=== PATIENT | female | born 1935 | race Caucasian/White ===

== ENCOUNTER 2022-10-29 15:10 | Inpatient (IN) | payer OTHER, MEDICARE ==
[~2022-10-29 15:10] MED LIST: Iopamidol 370 76% 100 ML VIAL ONE
[2022-10-29] MEDS ORDERED: Ipratropium/Albuterol 3 ML NEB ONE (16:12)
[2022-10-29 16:36] LABS: ALT (SGPT) 22 U/L (8-55); AST (SGOT) 31 U/L (5-34); Alkaline Phosphatase 89 U/L (40-110); Anion Gap 16 mmol/L (10-20); BUN (Urea Nitrogen) 14 mg/dL (9.8-20.1); Bilirubin, Total 1.3 mg/dL (0.2-1.2); Calc. Creatinine Clearance 0 mL/min (70-130); Calcium 8.1 mg/dL (7.8-10.44); Carbon Dioxide 24 mmol/L (23-31); Chloride 99 mmol/L (98-107); Estimated GFR 61; Globulin 3.6 g/dL (2.4-3.5); Glucose 133 mg/dL (83-110); Potassium 3.1 mmol/L (3.5-5.1); Protein, Total 7.6 g/dL (5.8-8.1); Sodium 136 mmol/L (136-145)
[2022-10-29 16:38] LABS: Hematocrit 37.6 % (34.9-44.5); Hemoglobin 12.1 g/dL (12.0-15.5); Mean Corpuscular HGB CONC 32.2 g/dL (32.0-36.0); Mean Corpuscular Hemoglobin 29.5 pg (27.0-33.0); Mean Corpuscular Volume 91.7 fl (81.6-98.3); Mean Platelet Volume 9.8 fl (7.4-10.4); Platelet Count 162 10x3/uL (150-450); RBC Distribution Width 13.5 % (11.5-14.5); White Blood Cell (WBC) Count 15.9 10x3/uL (3.5-10.5)
[2022-10-29 16:41] LABS: MDiff Complete? YES
[2022-10-29 16:42] LABS: Troponin I 0.027 ng/mL (< 0.028)
[2022-10-29 16:52] LABS: SARS-CoV-2 NAA Rapid Test Not Detected (NotDetected)
[2022-10-29] MEDS ORDERED: Morphine 2 MG/ML VIAL ONE (17:47)
[2022-10-29] MEDS ORDERED: Calcium Carbonate 500 MG ChewTAB PO PRN (19:31)
[2022-10-29] MEDS ORDERED: Ondansetron PF 4 MG/2 ML Vial IVP PRN (19:31)
[2022-10-29] MEDS ORDERED: Acetaminophen 325 MG TAB PO PRN (19:31)
[2022-10-29] MEDS ORDERED: Guaifenesin DM 100-10/5 ML UDCUP PO PRN (19:31)
[2022-10-29] MEDS ORDERED: Senokot S 8.6-50 MG TAB PO PRN (19:31)
[2022-10-29 20:21] LABS: Band 3 % (5-11); Lymphocytes 1 % (21-51); Monocytes 4 % (0-10); Neutrophil 92 % (42-75)
[2022-10-29 20:22] LABS: Platelet Adequacy Comment Appears Adequate
[2022-10-29 20:25] LABS: RBC Morph Comment Within Normal Limits
[2022-10-29 20:27] LABS: Nucleated RBC (Manual Ct) 0 % (0)
[2022-10-29 22:06] LABS: ALV-art Gradient 143.855 mmHg (0-20); Base Excess (BEa) 0.3 mEq/L (-2.0 to +3.0); CO2 Tension 35.7 mmHg (35.0-45.0); Calcium, Ionized (arterial) 1.01 mmol/L (1.12-1.30); Carboxyhemoglobin (COHb) 0.5 gm% (0.0-3.0); Critical Notified By: CP.PH; Hematocrit-ABG 35 % (36.0-47.0); Hemoglobin (Hb) 11.9 g/dL (12.0-16.0); O2 Tension (PaO2), arterial 68.2 mmHg (> 60.0); Potassium - ABG Lab 3.13 mmol/L (3.70-5.30); Puncture Site LBA; RapidComm Collect By CP.JR1; pH, Arterial 7.446 (7.35-7.45)
[2022-10-29] MEDS ORDERED: Morphine 2 MG/ML VIAL SLOW IVP PRN (22:15)
[2022-10-29] MEDS ORDERED: Famotidine 20 MG TAB PO SCH (22:30)
[2022-10-29] MEDS ORDERED: Potassium Chloride 20 MEQ TAB PO SCH (22:30)
[2022-10-29] MEDS ORDERED: Furosemide 20 MG/2 ML VIAL SLOW IVP SCH (22:30)
[2022-10-29] MEDS ORDERED: Metoprolol Tartrate 25 MG TAB PO SCH (22:30)
[2022-10-29] MEDS: HYDROcodone/Acetaminophen 5/325 mg Tablet PO PRN (23:41)
[2022-10-30] MEDS ORDERED: Potassium Chloride 20 MEQ TAB PO SCH ×2 (02:00→08:00)
[2022-10-30 02:09] VITALS: BMI 23.1
[2022-10-30 04:17] LABS: #Monocytes 0.6 10x3/uL (0.0-1.1); %Basophils 0.2 % (0.0-2.0); %Eosinophils 0.1 % (0.0-6.0); %Lymphocytes 4.8 % (18.0-47.0); %Monocytes 4.8 % (0.0-10.0); %Neutrophils 89.4 % (40.0-75.0); Hematocrit 33.9 % (34.9-44.5); Mean Corpuscular HGB CONC 32.4 g/dL (32.0-36.0); Mean Corpuscular Hemoglobin 29.3 pg (27.0-33.0); Mean Corpuscular Volume 90.2 fl (81.6-98.3); Mean Platelet Volume 10.1 fl (7.4-10.4); Platelet Count 148 10x3/uL (150-450); RBC Distribution Width 13.8 % (11.5-14.5); Red Blood Cell (RBC) Count 3.76 10x6/uL (3.90-5.03); White Blood Cell (WBC) Count 12.3 10x3/uL (3.5-10.5)
[2022-10-30] MEDS: HYDROcodone/Acetaminophen 5/325 mg Tablet PO PRN (04:25)
[2022-10-30 04:31] LABS: Phosphorus 3.3 mg/dL (2.3-4.7)
[2022-10-30 04:35] LABS: ALT (SGPT) 20 U/L (8-55); AST (SGOT) 31 U/L (5-34); Albumin 3.6 g/dL (3.4-4.8); Alkaline Phosphatase 75 U/L (40-110); Anion Gap 11 mmol/L (10-20); BUN (Urea Nitrogen) 14 mg/dL (9.8-20.1); Bilirubin, Total 0.9 mg/dL (0.2-1.2); Calc. Creatinine Clearance 41 mL/min (70-130); Calcium 7.8 mg/dL (7.8-10.44); Carbon Dioxide 26 mmol/L (23-31); Chloride 99 mmol/L (98-107); Estimated GFR 62; Globulin 3.2 g/dL (2.4-3.5); Glucose 122 mg/dL (83-110); Potassium 3.2 mmol/L (3.5-5.1); Protein, Total 6.8 g/dL (5.8-8.1); Sodium 133 mmol/L (136-145)
[2022-10-30 05:09] LABS: Thyroid Stimulating Hormone 1.6501 uIU/mL (0.35-4.94)
[2022-10-30] MEDS ORDERED: Furosemide 40 MG TAB PO SCH (07:30)
[2022-10-30] MEDS: Ipratropium/Albuterol 3 ML NEB NEB PRN (07:35)
[2022-10-30] MEDS ORDERED: Cinacalcet HCl 30 MG TAB PO SCH ×2 (08:00→08:45)
[2022-10-30] MEDS ORDERED: Sertraline 25 MG TAB PO SCH (09:00)
[2022-10-30] MEDS ORDERED: Famotidine 20 MG TAB PO SCH (09:00)
[2022-10-30] MEDS ORDERED: Losartan 25 MG TAB PO SCH (09:00)
[2022-10-30] MEDS ORDERED: Metoprolol Tartrate 25 MG TAB PO SCH (09:00)
[2022-10-30] MEDS ORDERED: Gabapentin 100 MG CAP PO SCH (09:00)
[2022-10-30] MEDS: Sertraline 100 MG TAB PO SCH (09:46)
[2022-10-30] MEDS: Ezetimibe 10 MG TAB PO SCH (09:46)
[2022-10-30] MEDS: Trospium 20 MG TAB PO SCH ×2 (09:46→21:50)
[2022-10-30] MEDS: Losartan 25 MG TAB PO SCH (09:46)
[2022-10-30] MEDS: traMADol HCl 50 MG TAB PO SCH ×2 (09:47→21:49)
[2022-10-30] MEDS: Amlodipine 5 MG TAB PO SCH (09:47)
[2022-10-30] MEDS: Multivitamin W/ Minerals 1 TAB PO SCH (09:49)
[2022-10-30] MEDS: Furosemide 40 MG TAB PO SCH (09:49)
[2022-10-30] MEDS: Gabapentin 300 MG CAP PO SCH (09:49)
[2022-10-30] MEDS: Metoprolol Tartrate 25 MG TAB PO SCH ×2 (09:50→21:49)
[2022-10-30] MEDS ORDERED: HYDROcodone/Acetaminophen 10/325 mg Tablet PO PRN (13:30)
[2022-10-30] MEDS ORDERED: Morphine 4 MG/ML VIAL SLOW IVP PRN (13:30)
[2022-10-30 13:51] LABS: Vitamin D, 25 Hydroxy 27.9 ng/ml (> 30.0)
[2022-10-30] MEDS: Cinacalcet HCl 30 MG TAB PO SCH (17:18)
[2022-10-31 02:29] LABS: Bilirubin Neg (Negative); Blood, Urine 10 (Negative); Clarity Clear (Clear); Glucose, Urine (Dipstick) Normal (Negative); Ketone, Urine Negative (Negative); Leukocyte Negative (Negative); Nitrite Negative (Negative); Protein, Urine (Dipstick) 30 mg/dl (Neg-Trace); Urobilinogen Normal mg/dL (Less than 2); pH, Urine 6.5 (5.0-9.0)
[2022-10-31 02:35] LABS: CAUTI Indications for Culture Fever or rigors; RBC/HPF 0-3 HPF (0-3); Squamous Epithelial 0-3 HPF (0-3); WBC/HPF 0-3 HPF (0-3)
[2022-10-31 02:36] LABS: Bacteria/HPF None Seen HPF (None Seen); Urine Culture Reflex No No
[2022-10-31 03:51] LABS: Troponin I 0.158 ng/mL (< 0.028)
[2022-10-31] MEDS: HYDROcodone/Acetaminophen 5/325 mg Tablet PO PRN (04:32)
[2022-10-31] MEDS: Gabapentin 300 MG CAP PO SCH (08:39)
[2022-10-31] MEDS: Sertraline 100 MG TAB PO SCH (08:39)
[2022-10-31] MEDS: Multivitamin W/ Minerals 1 TAB PO SCH (08:39)
[2022-10-31] MEDS: Amlodipine 5 MG TAB PO SCH (08:39)
[2022-10-31] MEDS: traMADol HCl 50 MG TAB PO SCH ×2 (08:40→21:17)
[2022-10-31] MEDS: Cinacalcet HCl 30 MG TAB PO SCH ×2 (08:40→17:35)
[2022-10-31] MEDS: Ezetimibe 10 MG TAB PO SCH (08:40)
[2022-10-31] MEDS: Losartan 25 MG TAB PO SCH (08:40)
[2022-10-31] MEDS: Metoprolol Tartrate 25 MG TAB PO SCH ×2 (08:40→21:17)
[2022-10-31] MEDS: Famotidine 20 MG TAB PO SCH (08:40)
[2022-10-31] MEDS: Trospium 20 MG TAB PO SCH ×2 (08:41→21:17)
[2022-10-31] MEDS: Furosemide 40 MG TAB PO SCH (08:41)
[2022-11-01] MEDS: HYDROcodone/Acetaminophen 5/325 mg Tablet PO PRN (00:28)
[2022-11-01 07:59] LABS: #Eosinphils 0.3 10x3/uL (0.0-0.5); #Monocytes 0.8 10x3/uL (0.0-1.1); #Neutrophils 8.2 10x3/uL (1.5-8.4); %Basophils 0.4 % (0.0-2.0); %Lymphocytes 7.6 % (18.0-47.0); %Monocytes 7.6 % (0.0-10.0); %Neutrophils 80.8 % (40.0-75.0); Hemoglobin 11.7 g/dL (12.0-15.5); Mean Corpuscular HGB CONC 31.6 g/dL (32.0-36.0); Mean Corpuscular Hemoglobin 29.3 pg (27.0-33.0); Mean Corpuscular Volume 92.5 fl (81.6-98.3); Mean Platelet Volume 9.9 fl (7.4-10.4); Platelet Count 164 10x3/uL (150-450); RBC Distribution Width 14.2 % (11.5-14.5); White Blood Cell (WBC) Count 10.1 10x3/uL (3.5-10.5)
[2022-11-01 08:25] LABS: Anion Gap 16 mmol/L (10-20); BUN (Urea Nitrogen) 21 mg/dL (9.8-20.1); Calc. Creatinine Clearance 42 mL/min (70-130); Calcium 8.5 mg/dL (7.8-10.44); Carbon Dioxide 23 mmol/L (23-31); Chloride 100 mmol/L (98-107); Estimated GFR 64; Glucose 103 mg/dL (83-110); Potassium 4.2 mmol/L (3.5-5.1); Sodium 135 mmol/L (136-145)
[2022-11-01] MEDS ORDERED: Losartan 25 MG TAB PO SCH (09:00)
[2022-11-01] MEDS: Ezetimibe 10 MG TAB PO SCH (09:28)
[2022-11-01] MEDS: Famotidine 20 MG TAB PO SCH (09:28)
[2022-11-01] MEDS: traMADol HCl 50 MG TAB PO SCH ×2 (09:28→20:34)
[2022-11-01] MEDS: Multivitamin W/ Minerals 1 TAB PO SCH (09:28)
[2022-11-01] MEDS: Sertraline 100 MG TAB PO SCH (09:28)
[2022-11-01] MEDS: Metoprolol Tartrate 25 MG TAB PO SCH ×2 (09:29→20:34)
[2022-11-01] MEDS: Gabapentin 300 MG CAP PO SCH (09:29)
[2022-11-01] MEDS: Trospium 20 MG TAB PO SCH ×2 (09:29→20:34)
[2022-11-01] MEDS: Cinacalcet HCl 30 MG TAB PO SCH ×2 (09:29→17:22)
[2022-11-01] MEDS: Furosemide 40 MG TAB PO SCH (09:29)
[2022-11-02] MEDS ORDERED: dilTIAZem 25 MG/5 ML VIAL SLOW IVP SCH (03:45)
[2022-11-02] MEDS ORDERED: Metoprolol Tartrate 5 MG/5 ML VIAL IVP SCH (04:30)
[2022-11-02 05:59] LABS: #Eosinphils 0.2 10x3/uL (0.0-0.5); #Monocytes 0.9 10x3/uL (0.0-1.1); #Neutrophils 6.9 10x3/uL (1.5-8.4); %Basophils 0.5 % (0.0-2.0); %Eosinophils 2.4 % (0.0-6.0); %Lymphocytes 8.9 % (18.0-47.0); %Monocytes 10.3 % (0.0-10.0); %Neutrophils 77.3 % (40.0-75.0); Hematocrit 35.7 % (34.9-44.5); Hemoglobin 11.4 g/dL (12.0-15.5); Mean Corpuscular HGB CONC 31.9 g/dL (32.0-36.0); Mean Corpuscular Hemoglobin 29.4 pg (27.0-33.0); Mean Platelet Volume 10.6 fl (7.4-10.4); Platelet Count 193 10x3/uL (150-450); Red Blood Cell (RBC) Count 3.88 10x6/uL (3.90-5.03); White Blood Cell (WBC) Count 8.9 10x3/uL (3.5-10.5)
[2022-11-02 06:09] LABS: Anion Gap 17 mmol/L (10-20); BUN (Urea Nitrogen) 22 mg/dL (9.8-20.1); Calc. Creatinine Clearance 45 mL/min (70-130); Calcium 8.7 mg/dL (7.8-10.44); Carbon Dioxide 22 mmol/L (23-31); Chloride 99 mmol/L (98-107); Estimated GFR 68; Glucose 110 mg/dL (83-110); Magnesium 1.9 mg/dL (1.6-2.6); Sodium 134 mmol/L (136-145)
[2022-11-02] MEDS ORDERED: dilTIAZem 125 MG in Sodium Chloride 0.9% 100 ML IVPB SCH (06:15)
[2022-11-02] MEDS ORDERED: Digoxin 0.5 MG/2 ML AMP SLOW IVP SCH (06:15)
[2022-11-02] MEDS: Gabapentin 300 MG CAP PO SCH (08:18)
[2022-11-02] MEDS: Magnesium Oxide 400 MG TAB PO SCH ×2 (08:18→21:51)
[2022-11-02] MEDS: Metoprolol Tartrate 25 MG TAB PO SCH ×2 (08:18→21:50)
[2022-11-02] MEDS: Cinacalcet HCl 30 MG TAB PO SCH ×2 (08:18→17:10)
[2022-11-02] MEDS: Multivitamin W/ Minerals 1 TAB PO SCH (08:18)
[2022-11-02] MEDS: Trospium 20 MG TAB PO SCH ×2 (08:18→21:50)
[2022-11-02] MEDS: Sertraline 100 MG TAB PO SCH (08:18)
[2022-11-02] MEDS: Famotidine 20 MG TAB PO SCH (08:18)
[2022-11-02] MEDS: traMADol HCl 50 MG TAB PO SCH ×2 (08:19→21:51)
[2022-11-02] MEDS: Furosemide 40 MG TAB PO SCH (08:19)
[2022-11-02] MEDS: Ezetimibe 10 MG TAB PO SCH (08:19)
[2022-11-02] MEDS ORDERED: Amiodarone 150 MG, Admixture Fee 1 EACH in Dextrose 5% in Water 100 ML IVPB SCH (10:00)
[2022-11-02] MEDS ORDERED: Amiodarone 450 MG in Dextrose 5% in Water 250 ML IVPB SCH (10:00)
[2022-11-02] MEDS: HYDROcodone/Acetaminophen 10/325 mg Tablet PO PRN (17:09)
[2022-11-02] MEDS ORDERED: Amiodarone In Dextrose 360 MG in Premix Bag 1 BAG IVPB SCH (18:15)
[2022-11-03] MEDS: HYDROcodone/Acetaminophen 10/325 mg Tablet PO PRN ×2 (02:22→09:46)
[2022-11-03] MEDS: Ipratropium/Albuterol 3 ML NEB NEB PRN (08:22)
[2022-11-03] MEDS: Famotidine 20 MG TAB PO SCH (09:43)
[2022-11-03] MEDS: traMADol HCl 50 MG TAB PO SCH (09:43)
[2022-11-03] MEDS: Cinacalcet HCl 30 MG TAB PO SCH (09:43)
[2022-11-03] MEDS: Metoprolol Tartrate 25 MG TAB PO SCH (09:44)
[2022-11-03] MEDS: Sertraline 100 MG TAB PO SCH (09:44)
[2022-11-03] MEDS: Magnesium Oxide 400 MG TAB PO SCH (09:45)
[2022-11-03] MEDS: Ezetimibe 10 MG TAB PO SCH (09:45)
[2022-11-03] MEDS: Multivitamin W/ Minerals 1 TAB PO SCH (09:45)
[2022-11-03] MEDS: Furosemide 40 MG TAB PO SCH (09:46)
[2022-11-03] MEDS: Trospium 20 MG TAB PO SCH (09:47)
[2022-11-03] MEDS: Gabapentin 300 MG CAP PO SCH (09:47)
[2022-11-03 12:26] VITALS: TEMP 98
[2022-11-03 14:51] VITALS: BP 87/57
[2022-11-03] MEDS ORDERED: Amiodarone 200 MG TAB PO SCH (21:00)
== END 2022-11-03 16:15 | DRG 562 ==
LOC: CSHERS 15:10 → CSHTELE 20:57
PROVIDERS: ADMIT Student in an Organized Health Care Education/Training Program; ATTEND Internal Medicine
PROC: 4A033R1 Measurement of Arterial Saturation, Peripheral, Percutaneous Approach (ICD-10-PCS; principal; 2022-10-29)
DX: S52.571A Other intraarticular fracture of lower end of right radius, initial encounter for closed fracture (principal); I50.31 Acute diastolic (congestive) heart failure; J96.01 Acute respiratory failure with hypoxia; S32.591A Other specified fracture of right pubis, initial encounter for closed fracture; W01.0XXA Fall on same level from slipping, tripping and stumbling without subsequent striking against object, initial encounter; E87.6 Hypokalemia; I10 Essential (primary) hypertension; E78.5 Hyperlipidemia, unspecified; Z20.822 Contact with and (suspected) exposure to COVID-19; Z96.642 Presence of left artificial hip joint; Z98.890 Other specified postprocedural states; Z66 Do not resuscitate; F32.A Depression, unspecified; Z90.710 Acquired absence of both cervix and uterus; E21.3 Hyperparathyroidism, unspecified; I11.0 Hypertensive heart disease with heart failure; I48.91 Unspecified atrial fibrillation; M81.0 Age-related osteoporosis without current pathological fracture; F03.90 Unspecified dementia, unspecified severity, without behavioral disturbance, psychotic disturbance, mood disturbance, and anxiety
CPT/HCPCS: 36415; 36600; 71045; 71275; 72100; 72170; 80048; 80053; 81001; 82306; 82550; 82805; 83735; 83880; 83970; 84100; 84443; 84484; 85025; 87633; 93005; 93010; 93306; 94640; 94760; 96374; J0282; J0283; J1160; J1650; J1940; J2272; J3490; J7070; J7620; Q9967; U0002

== ENCOUNTER 2022-12-08 11:46 | Emergency (ER) | payer MEDICARE ==
[~2022-12-08 11:46] MED LIST changes: +Iopamidol 300 61% 100 ML VIAL FS ONE; -Iopamidol 370 76% 100 ML VIAL ONE
[2022-12-08 13:13] LABS: #Eosinphils 0.1 10x3/uL (0.0-0.5); #Monocytes 0.6 10x3/uL (0.0-1.1); #Neutrophils 4.7 10x3/uL (1.5-8.4); %Basophils 0.6 % (0.0-2.0); %Lymphocytes 13.7 % (18.0-47.0); %Monocytes 8.8 % (0.0-10.0); %Neutrophils 73.6 % (40.0-75.0); Hematocrit 31.4 % (34.9-44.5); Hemoglobin 10.2 g/dL (12.0-15.5); Mean Corpuscular HGB CONC 32.5 g/dL (32.0-36.0); Mean Corpuscular Volume 92.4 fl (81.6-98.3); Mean Platelet Volume 8.3 fl (7.4-10.4); Platelet Count 375 10x3/uL (150-450); RBC Distribution Width 14.6 % (11.5-14.5); White Blood Cell (WBC) Count 6.4 10x3/uL (3.5-10.5)
[2022-12-08 13:35] LABS: ALT (SGPT) 13 U/L (8-55); AST (SGOT) 23 U/L (5-34); Albumin 3.2 g/dL (3.4-4.8); Alkaline Phosphatase 239 U/L (40-110); Anion Gap 16 mmol/L (10-20); BUN (Urea Nitrogen) 8 mg/dL (9.8-20.1); Bilirubin, Total 0.4 mg/dL (0.2-1.2); Calc. Creatinine Clearance 0 mL/min (70-130); Calcium 7.4 mg/dL (7.8-10.44); Carbon Dioxide 25 mmol/L (23-31); Chloride 97 mmol/L (98-107); Estimated GFR 81; Globulin 3.6 g/dL (2.4-3.5); Glucose 101 mg/dL (83-110); Potassium 2.9 mmol/L (3.5-5.1); Protein, Total 6.8 g/dL (5.8-8.1); Sodium 135 mmol/L (136-145)
[2022-12-08 13:46] LABS: Bilirubin Neg (Negative); Blood, Urine 10 (Negative); Glucose, Urine (Dipstick) Normal (Negative); Ketone, Urine Negative (Negative); Leukocyte 500 (Negative); Nitrite Negative (Negative); Protein, Urine (Dipstick) Negative (Neg-Trace); Urobilinogen Normal mg/dL (Less than 2)
[2022-12-08 13:48] LABS: Clarity Hazy (Clear)
[2022-12-08 13:56] LABS: CAUTI Indications for Culture Pelvic or flank pain; RBC/HPF 0-3 HPF (0-3)
[2022-12-08 13:58] LABS: Squamous Epithelial 0-3 HPF (0-3); Transitional Epithelial 0-3 HPF (None Seen)
[2022-12-08 13:59] LABS: Bacteria/HPF 2+ HPF (None Seen)
[2022-12-08 14:00] LABS: Mucous/LPF 2+ LPF (<2+)
[2022-12-08 14:05] LABS: White Blood Cell Cast 0-3 LPF (None Seen)
[2022-12-08 14:10] LABS: Urine Culture Reflex Yes Yes
== END 2022-12-08 19:20 | disposition home or self-care (01) ==
LOC: CSHERS 11:46
DX: K56.41 Fecal impaction (principal); I10 Essential (primary) hypertension; E78.5 Hyperlipidemia, unspecified
CPT/HCPCS: 36415; 74177; 80053; 81001; 83605; 85025; 87077; 87086; 87186; Q9967

== ENCOUNTER 2022-12-23 12:42 | Inpatient (IN) | payer MEDICARE ==
[2022-12-23 13:22] LABS: #Eosinphils 0.1 10x3/uL (0.0-0.5); #Monocytes 0.7 10x3/uL (0.0-1.1); #Neutrophils 4.3 10x3/uL (1.5-8.4); %Basophils 0.1 % (0.0-2.0); %Eosinophils 1.3 % (0.0-6.0); %Lymphocytes 27.8 % (18.0-47.0); %Monocytes 9.6 % (0.0-10.0); %Neutrophils 60.5 % (40.0-75.0); Hematocrit 29.5 % (34.9-44.5); Hemoglobin 9.2 g/dL (12.0-15.5); Mean Corpuscular HGB CONC 31.2 g/dL (32.0-36.0); Mean Corpuscular Hemoglobin 28.8 pg (27.0-33.0); Mean Corpuscular Volume 92.2 fl (81.6-98.3); Mean Platelet Volume 8.6 fl (7.4-10.4); Platelet Count 280 10x3/uL (150-450); RBC Distribution Width 15.2 % (11.5-14.5); White Blood Cell (WBC) Count 7.2 10x3/uL (3.5-10.5)
[2022-12-23 13:36] LABS: ALT (SGPT) 8 U/L (8-55); AST (SGOT) 13 U/L (5-34); Albumin 2.5 g/dL (3.4-4.8); Alkaline Phosphatase 144 U/L (40-110); Anion Gap 11 mmol/L (10-20); BUN (Urea Nitrogen) 18 mg/dL (9.8-20.1); Bilirubin, Total 0.4 mg/dL (0.2-1.2); Calc. Creatinine Clearance 0 mL/min (70-130); Calcium 7.3 mg/dL (7.8-10.44); Carbon Dioxide 25 mmol/L (23-31); Chloride 107 mmol/L (98-107); Estimated GFR 52; Globulin 2.4 g/dL (2.4-3.5); Glucose 96 mg/dL (83-110); Lipase 17 U/L (8-78); Magnesium 1.5 mg/dL (1.6-2.6); Potassium 2.8 mmol/L (3.5-5.1); Protein, Total 4.9 g/dL (5.8-8.1); Sodium 140 mmol/L (136-145)
[2022-12-23 13:42] LABS: Troponin I 0.038 ng/mL (< 0.028)
[2022-12-23 13:59] LABS: Bilirubin Neg (Negative); Blood, Urine 150 (Negative); Clarity Cloudy (Clear); Glucose, Urine (Dipstick) Normal (Negative); Ketone, Urine Negative (Negative); Leukocyte 500 (Negative); Nitrite Negative (Negative); Protein, Urine (Dipstick) 100 mg/dl (Neg-Trace); Specific Gravity, Urine 1.015 (1.005-1.030); Urobilinogen Normal mg/dL (Less than 2)
[2022-12-23 14:08] LABS: Bacteria/HPF 4+ HPF (None Seen); CAUTI Indications for Culture Dysuria,urgency,freq; WBC/HPF Greater than 50 HPF (0-3)
[2022-12-23 14:09] LABS: Urine Culture Reflex Yes Yes
[2022-12-23] MEDS ORDERED: cefTRIAXone (ROCEPHIN) 1 GM VIAL ONE (14:31)
[2022-12-23] MEDS ORDERED: Sterile Water 10 ML ONE (14:31)
[2022-12-23 14:32] LABS: Actual Bicarbonate (HCO3v) 23.8 mEq/L (22-28); Base Excess -0.8 mEq/L (-2 - +2); Calcium, Ionized (venous) 1.01 mmol/L (1.16-1.32); Chloride (VBG) 104 mmol/L (98-106); Hematocrit-VBG 33 % (36.0-47.0); Hemoglobin (Hb) 11.3 g/dL (11.7-16.1); Potassium (VBG) 2.92 mmol/L (3.70-5.30); Puncture Site Other Site; RapidComm Collect By cbn; Sodium 138 mmol/L (133-146); pH (venous) 7.402 (7.32-7.43)
[2022-12-23] MEDS ORDERED: Ondansetron PF 4 MG/2 ML Vial IVP PRN (15:58)
[2022-12-23] MEDS ORDERED: Acetaminophen 325 MG TAB PO PRN (15:58)
[2022-12-23] MEDS ORDERED: Ondansetron ODT 4 MG TAB PO PRN (15:58)
[2022-12-23] MEDS ORDERED: Sodium Chloride 0.9% 1,000 ML IV SCH (16:00)
[2022-12-23] MEDS ORDERED: Electrolyte Replacement Protocol 1 EACH FS SCH (16:30)
[2022-12-23] MEDS ORDERED: Magnesium 2 GM/50 ML(in water) 2 GM in Premix 1 BAG IVPB SCH (17:45)
[2022-12-23 17:57] VITALS: BMI 25.7
[2022-12-23] MEDS: Potassium Chloride 20 MEQ TAB PO SCH ×2 (18:09→21:38)
[2022-12-23 19:29] LABS: Troponin I 0.016 ng/mL (< 0.028)
[2022-12-24 06:09] LABS: #Basophils 0.1 10x3/uL (0.0-0.2); #Eosinphils 0.1 10x3/uL (0.0-0.5); #Monocytes 0.6 10x3/uL (0.0-1.1); #Neutrophils 4.5 10x3/uL (1.5-8.4); %Basophils 0.7 % (0.0-2.0); %Eosinophils 1.8 % (0.0-6.0); %Lymphocytes 24.5 % (18.0-47.0); %Monocytes 8.3 % (0.0-10.0); %Neutrophils 63.7 % (40.0-75.0); Hematocrit 33.9 % (34.9-44.5); Hemoglobin 10.6 g/dL (12.0-15.5); Mean Corpuscular HGB CONC 31.3 g/dL (32.0-36.0); Mean Corpuscular Hemoglobin 28.8 pg (27.0-33.0); Mean Corpuscular Volume 92.1 fl (81.6-98.3); Mean Platelet Volume 8.8 fl (7.4-10.4); Platelet Count 304 10x3/uL (150-450); RBC Distribution Width 15.2 % (11.5-14.5); Red Blood Cell (RBC) Count 3.68 10x6/uL (3.90-5.03); White Blood Cell (WBC) Count 7.1 10x3/uL (3.5-10.5)
[2022-12-24 06:20] LABS: Anion Gap 14 mmol/L (10-20); BUN (Urea Nitrogen) 13 mg/dL (9.8-20.1); Calc. Creatinine Clearance 47 mL/min (70-130); Carbon Dioxide 21 mmol/L (23-31); Chloride 109 mmol/L (98-107); Estimated GFR 66; Glucose 100 mg/dL (83-110); Magnesium 1.9 mg/dL (1.6-2.6); Potassium 3.4 mmol/L (3.5-5.1); Sodium 141 mmol/L (136-145)
[2022-12-24 06:41] LABS: Phosphorus 2.7 mg/dL (2.3-4.7)
[2022-12-24] MEDS ORDERED: Magnesium 2 GM/50 ML(in water) 2 GM in Premix 1 BAG IVPB SCH (09:00)
[2022-12-24] MEDS: Potassium Bicarbonate/Cit Ac 20 MEQ TAB PO SCH ×2 (09:32→17:44)
[2022-12-24] MEDS: cefTRIAXone\\ROCEPHIN 1 GM in Sodium Chloride 0.9% 100 ML IVPB SCH (14:10)
[2022-12-24] MEDS ORDERED: Melatonin 3 MG TAB PO PRN (15:37)
[2022-12-24] MEDS ORDERED: D5 0.9% NS w/ 20 mEq KCl 1,000 ML IV SCH (15:45)
[2022-12-24] MEDS: Sertraline 100 MG TAB PO SCH (17:44)
[2022-12-24] MEDS: Thiamine 100 MG TAB PO SCH (21:38)
[2022-12-24] MEDS: Folic Acid 1 MG TAB PO SCH (21:38)
[2022-12-24] MEDS: Cholecalciferol 1,000 UNITS (25 MCG) TAB PO SCH (21:38)
[2022-12-24] MEDS: Multivit, Therapeutic 1 TAB PO SCH (21:39)
[2022-12-24] MEDS: Cyanocobalamin (Vitamin B-12) 1,000 MCG TAB PO SCH (21:39)
[2022-12-24] MEDS: Senokot S 8.6-50 MG TAB PO SCH (21:39)
[2022-12-24] MEDS: Metoprolol Tartrate 25 MG TAB PO SCH (21:39)
[2022-12-24] MEDS: Gabapentin 300 MG CAP PO SCH (21:39)
[2022-12-24] MEDS: Cinacalcet HCl 30 MG TAB PO SCH (21:50)
[2022-12-25 04:24] LABS: #Eosinphils 0.2 10x3/uL (0.0-0.5); #Monocytes 0.7 10x3/uL (0.0-1.1); #Neutrophils 5.8 10x3/uL (1.5-8.4); %Basophils 0.5 % (0.0-2.0); %Eosinophils 2.5 % (0.0-6.0); %Lymphocytes 18.7 % (18.0-47.0); %Monocytes 8.3 % (0.0-10.0); %Neutrophils 69.3 % (40.0-75.0); Mean Corpuscular HGB CONC 31.3 g/dL (32.0-36.0); Mean Corpuscular Hemoglobin 28.5 pg (27.0-33.0); Mean Corpuscular Volume 91.2 fl (81.6-98.3); Mean Platelet Volume 8.4 fl (7.4-10.4); Platelet Count 273 10x3/uL (150-450); RBC Distribution Width 15.1 % (11.5-14.5); Red Blood Cell (RBC) Count 3.51 10x6/uL (3.90-5.03); White Blood Cell (WBC) Count 8.3 10x3/uL (3.5-10.5)
[2022-12-25 04:33] LABS: Anion Gap 11 mmol/L (10-20); BUN (Urea Nitrogen) 8 mg/dL (9.8-20.1); Calc. Creatinine Clearance 57 mL/min (70-130); Calcium 8.1 mg/dL (7.8-10.44); Carbon Dioxide 26 mmol/L (23-31); Chloride 107 mmol/L (98-107); Estimated GFR 83; Glucose 133 mg/dL (83-110); Magnesium 1.9 mg/dL (1.6-2.6); Potassium 3.6 mmol/L (3.5-5.1); Sodium 140 mmol/L (136-145)
[2022-12-25] MEDS ORDERED: D5 0.9% NS w/ 20 mEq KCl 1,000 ML IV SCH (07:45)
[2022-12-25] MEDS ORDERED: Magnesium 2 GM/50 ML(in water) 2 GM in Premix 1 BAG IVPB SCH (09:00)
[2022-12-25] MEDS ORDERED: Multivitamin W/ Minerals 1 TAB PO SCH (09:00)
[2022-12-25] MEDS: Metoprolol Tartrate 25 MG TAB PO SCH ×2 (09:07→22:04)
[2022-12-25] MEDS: Senokot S 8.6-50 MG TAB PO SCH ×2 (09:07→22:04)
[2022-12-25] MEDS: Cinacalcet HCl 30 MG TAB PO SCH ×2 (09:07→22:04)
[2022-12-25] MEDS: Sertraline 100 MG TAB PO SCH (15:06)
[2022-12-25] MEDS: cefTRIAXone\\ROCEPHIN 1 GM in Sodium Chloride 0.9% 100 ML IVPB SCH ×2 (15:06→16:03)
[2022-12-25] MEDS ORDERED: hydrALAZINE 25 MG TAB PO PRN (17:59)
[2022-12-25] MEDS: Heparin 5,000 UNITS/ML VIAL SC SCH (22:02)
[2022-12-25] MEDS: Multivit, Therapeutic 1 TAB PO SCH (22:03)
[2022-12-25] MEDS: Folic Acid 1 MG TAB PO SCH (22:03)
[2022-12-25] MEDS: Gabapentin 300 MG CAP PO SCH (22:03)
[2022-12-25] MEDS: Cholecalciferol 1,000 UNITS (25 MCG) TAB PO SCH (22:04)
[2022-12-25] MEDS: Losartan 50 MG TAB PO SCH (22:04)
[2022-12-25] MEDS: Cyanocobalamin (Vitamin B-12) 1,000 MCG TAB PO SCH (22:06)
[2022-12-25] MEDS: Thiamine 100 MG TAB PO SCH (22:21)
[2022-12-26 03:38] LABS: #Eosinphils 0.2 10x3/uL (0.0-0.5); #Monocytes 0.8 10x3/uL (0.0-1.1); #Neutrophils 6.4 10x3/uL (1.5-8.4); %Basophils 0.3 % (0.0-2.0); %Eosinophils 1.9 % (0.0-6.0); %Lymphocytes 18.6 % (18.0-47.0); %Monocytes 8.2 % (0.0-10.0); %Neutrophils 70.1 % (40.0-75.0); Hematocrit 30.3 % (34.9-44.5); Hemoglobin 9.6 g/dL (12.0-15.5); Mean Corpuscular HGB CONC 31.7 g/dL (32.0-36.0); Mean Corpuscular Hemoglobin 29.2 pg (27.0-33.0); Mean Corpuscular Volume 92.1 fl (81.6-98.3); Platelet Count 247 10x3/uL (150-450); RBC Distribution Width 15.3 % (11.5-14.5); Red Blood Cell (RBC) Count 3.29 10x6/uL (3.90-5.03); White Blood Cell (WBC) Count 9.1 10x3/uL (3.5-10.5)
[2022-12-26 04:15] LABS: Anion Gap 12 mmol/L (10-20); BUN (Urea Nitrogen) 10 mg/dL (9.8-20.1); Calc. Creatinine Clearance 55 mL/min (70-130); Calcium 8.1 mg/dL (7.8-10.44); Carbon Dioxide 24 mmol/L (23-31); Chloride 108 mmol/L (98-107); Estimated GFR 80; Glucose 120 mg/dL (83-110); Magnesium 1.8 mg/dL (1.6-2.6); Potassium 3.6 mmol/L (3.5-5.1); Sodium 140 mmol/L (136-145)
[2022-12-26] MEDS: Heparin 5,000 UNITS/ML VIAL SC SCH ×2 (10:21→21:25)
[2022-12-26] MEDS: Cinacalcet HCl 30 MG TAB PO SCH ×2 (10:34→21:30)
[2022-12-26] MEDS: Losartan 50 MG TAB PO SCH ×2 (10:34→21:31)
[2022-12-26] MEDS: Metoprolol Tartrate 25 MG TAB PO SCH ×2 (10:34→21:32)
[2022-12-26] MEDS: Senokot S 8.6-50 MG TAB PO SCH ×2 (10:35→21:30)
[2022-12-26] MEDS ORDERED: Magnesium 2 GM/50 ML(in water) 2 GM in Premix 1 BAG IVPB SCH (12:00)
[2022-12-26] MEDS: cefTRIAXone\\ROCEPHIN 1 GM in Sodium Chloride 0.9% 100 ML IVPB SCH (14:30)
[2022-12-26] MEDS: Sertraline 100 MG TAB PO SCH (17:00)
[2022-12-26] MEDS: Folic Acid 1 MG TAB PO SCH (21:30)
[2022-12-26] MEDS: Cyanocobalamin (Vitamin B-12) 1,000 MCG TAB PO SCH (21:31)
[2022-12-26] MEDS: Gabapentin 300 MG CAP PO SCH (21:31)
[2022-12-26] MEDS: Multivit, Therapeutic 1 TAB PO SCH (21:31)
[2022-12-26] MEDS: Cholecalciferol 1,000 UNITS (25 MCG) TAB PO SCH (21:32)
[2022-12-26] MEDS: Thiamine 100 MG TAB PO SCH (21:32)
[2022-12-27 03:31] LABS: #Eosinphils 0.1 10x3/uL (0.0-0.5); #Monocytes 0.7 10x3/uL (0.0-1.1); #Neutrophils 5.3 10x3/uL (1.5-8.4); %Basophils 0.4 % (0.0-2.0); %Eosinophils 1.8 % (0.0-6.0); %Lymphocytes 21.7 % (18.0-47.0); %Monocytes 8.6 % (0.0-10.0); %Neutrophils 66.7 % (40.0-75.0); Hematocrit 28.8 % (34.9-44.5); Hemoglobin 9.3 g/dL (12.0-15.5); Mean Corpuscular HGB CONC 32.3 g/dL (32.0-36.0); Mean Corpuscular Hemoglobin 29.5 pg (27.0-33.0); Mean Corpuscular Volume 91.4 fl (81.6-98.3); Mean Platelet Volume 8.8 fl (7.4-10.4); Platelet Count 212 10x3/uL (150-450); RBC Distribution Width 15.3 % (11.5-14.5); Red Blood Cell (RBC) Count 3.15 10x6/uL (3.90-5.03)
[2022-12-27 03:42] LABS: Anion Gap 12 mmol/L (10-20); BUN (Urea Nitrogen) 15 mg/dL (9.8-20.1); Calc. Creatinine Clearance 57 mL/min (70-130); Calcium 7.9 mg/dL (7.8-10.44); Carbon Dioxide 23 mmol/L (23-31); Chloride 107 mmol/L (98-107); Estimated GFR 83; Glucose 96 mg/dL (83-110); Potassium 3.6 mmol/L (3.5-5.1); Sodium 138 mmol/L (136-145)
[2022-12-27] MEDS ORDERED: Potassium Bicarbonate/Cit Ac 20 MEQ TAB PO SCH (08:00)
[2022-12-27] MEDS: Cinacalcet HCl 30 MG TAB PO SCH ×2 (08:49→20:47)
[2022-12-27] MEDS: Losartan 50 MG TAB PO SCH (08:50)
[2022-12-27] MEDS: Metoprolol Tartrate 25 MG TAB PO SCH ×2 (08:50→20:48)
[2022-12-27] MEDS: Senokot S 8.6-50 MG TAB PO SCH ×2 (08:51→20:48)
[2022-12-27] MEDS: Heparin 5,000 UNITS/ML VIAL SC SCH ×2 (09:30→20:48)
[2022-12-27] MEDS: Cefepime 1 GM in Sodium Chloride 0.9% 100 ML IVPB SCH ×2 (11:48→23:55)
[2022-12-27] MEDS: Sertraline 100 MG TAB PO SCH (15:07)
[2022-12-27] MEDS: Potassium Bicarbonate/Cit Ac 20 MEQ TAB PO SCH (18:30)
[2022-12-27] MEDS: Gabapentin 300 MG CAP PO SCH (20:47)
[2022-12-27] MEDS: Cyanocobalamin (Vitamin B-12) 1,000 MCG TAB PO SCH (20:47)
[2022-12-27] MEDS: Folic Acid 1 MG TAB PO SCH (20:48)
[2022-12-27] MEDS: Thiamine 100 MG TAB PO SCH (20:48)
[2022-12-27] MEDS: Multivit, Therapeutic 1 TAB PO SCH (20:48)
[2022-12-27] MEDS: Cholecalciferol 1,000 UNITS (25 MCG) TAB PO SCH (20:48)
[2022-12-28 03:58] LABS: #Eosinphils 0.1 10x3/uL (0.0-0.5); #Monocytes 0.7 10x3/uL (0.0-1.1); #Neutrophils 5.2 10x3/uL (1.5-8.4); %Basophils 0.4 % (0.0-2.0); %Eosinophils 1.7 % (0.0-6.0); %Lymphocytes 20.2 % (18.0-47.0); %Monocytes 8.5 % (0.0-10.0); %Neutrophils 68.4 % (40.0-75.0); Hemoglobin 9.2 g/dL (12.0-15.5); Mean Corpuscular HGB CONC 31.7 g/dL (32.0-36.0); Mean Corpuscular Volume 91.5 fl (81.6-98.3); Mean Platelet Volume 9.1 fl (7.4-10.4); Platelet Count 208 10x3/uL (150-450); Red Blood Cell (RBC) Count 3.17 10x6/uL (3.90-5.03); White Blood Cell (WBC) Count 7.7 10x3/uL (3.5-10.5)
[2022-12-28 04:16] LABS: Phosphorus 3.3 mg/dL (2.3-4.7)
[2022-12-28 04:19] LABS: Anion Gap 12 mmol/L (10-20); BUN (Urea Nitrogen) 13 mg/dL (9.8-20.1); Calc. Creatinine Clearance 58 mL/min (70-130); Calcium 7.7 mg/dL (7.8-10.44); Carbon Dioxide 23 mmol/L (23-31); Chloride 106 mmol/L (98-107); Estimated GFR 83; Glucose 95 mg/dL (83-110); Magnesium 1.9 mg/dL (1.6-2.6); Potassium 3.4 mmol/L (3.5-5.1); Sodium 138 mmol/L (136-145)
[2022-12-28] MEDS ORDERED: Magnesium 2 GM/50 ML(in water) 2 GM in Premix 1 BAG IVPB SCH (09:00)
[2022-12-28] MEDS: Losartan 50 MG TAB PO SCH (09:03)
[2022-12-28] MEDS: Potassium Bicarbonate/Cit Ac 20 MEQ TAB PO SCH ×2 (09:03→16:40)
[2022-12-28] MEDS: Metoprolol Tartrate 25 MG TAB PO SCH ×2 (09:04→20:59)
[2022-12-28] MEDS: Senokot S 8.6-50 MG TAB PO SCH ×2 (09:04→20:59)
[2022-12-28] MEDS: Cinacalcet HCl 30 MG TAB PO SCH ×2 (09:04→20:59)
[2022-12-28] MEDS: Heparin 5,000 UNITS/ML VIAL SC SCH ×2 (09:06→20:57)
[2022-12-28] MEDS: Cefepime 1 GM in Sodium Chloride 0.9% 100 ML IVPB SCH (12:47)
[2022-12-28] MEDS: Sertraline 100 MG TAB PO SCH (16:40)
[2022-12-28] MEDS: Folic Acid 1 MG TAB PO SCH (20:59)
[2022-12-28] MEDS: Multivit, Therapeutic 1 TAB PO SCH (20:59)
[2022-12-28] MEDS: Cyanocobalamin (Vitamin B-12) 1,000 MCG TAB PO SCH (20:59)
[2022-12-28] MEDS: Thiamine 100 MG TAB PO SCH (20:59)
[2022-12-28] MEDS: Cholecalciferol 1,000 UNITS (25 MCG) TAB PO SCH (20:59)
[2022-12-28] MEDS: Gabapentin 300 MG CAP PO SCH (20:59)
[2022-12-29] MEDS: Cefepime 1 GM in Sodium Chloride 0.9% 100 ML IVPB SCH ×2 (00:26→14:54)
[2022-12-29] MEDS: Losartan 50 MG TAB PO SCH (09:26)
[2022-12-29] MEDS: Potassium Bicarbonate/Cit Ac 20 MEQ TAB PO SCH (09:26)
[2022-12-29] MEDS: Senokot S 8.6-50 MG TAB PO SCH (09:26)
[2022-12-29] MEDS: Heparin 5,000 UNITS/ML VIAL SC SCH (09:26)
[2022-12-29] MEDS: Metoprolol Tartrate 25 MG TAB PO SCH (09:26)
[2022-12-29] MEDS: Cinacalcet HCl 30 MG TAB PO SCH (09:26)
[2022-12-29 13:55] VITALS: BP 165/74; TEMP 98.5
== END 2022-12-29 14:15 | disposition home or self-care (01) | DRG 689 ==
LOC: CSHERS 12:42 → CSHTELE 16:08
PROVIDERS: ADMIT Internal Medicine; ATTEND Hospitalist
DX: N39.0 Urinary tract infection, site not specified (principal); G93.41 Metabolic encephalopathy; I50.32 Chronic diastolic (congestive) heart failure; E78.5 Hyperlipidemia, unspecified; F03.90 Unspecified dementia, unspecified severity, without behavioral disturbance, psychotic disturbance, mood disturbance, and anxiety; E87.6 Hypokalemia; B96.5 Pseudomonas (aeruginosa) (mallei) (pseudomallei) as the cause of diseases classified elsewhere; R09.02 Hypoxemia; I11.0 Hypertensive heart disease with heart failure; I48.91 Unspecified atrial fibrillation; Z66 Do not resuscitate; E21.0 Primary hyperparathyroidism; K59.00 Constipation, unspecified; R33.9 Retention of urine, unspecified; Z79.899 Other long term (current) drug therapy; Z98.890 Other specified postprocedural states; Z98.51 Tubal ligation status; Z90.710 Acquired absence of both cervix and uterus
CPT/HCPCS: 36415; 71045; 74176; 80048; 80053; 81001; 82805; 83690; 83735; 84100; 84484; 85025; 87040; 87077; 87086; 87186; 93005; 94760; 96361; 96374; 97139; J0692; J0696; J1644; J1650; J3475; J3480; J3490; J7050

== ENCOUNTER 2023-04-08 14:07 | Observation (INO) | payer MEDICARE ==
[2023-04-08] MEDS ORDERED: Polyethylene Glycol 3350 17 GM Packet PO PRN (17:12)
[2023-04-08] MEDS ORDERED: Senokot S 8.6-50 MG TAB PO PRN (17:12)
[2023-04-08] MEDS ORDERED: Acetaminophen 325 MG TAB PO PRN (17:20)
[2023-04-08] MEDS ORDERED: Bisacodyl 10 MG SUPP PR PRN (17:20)
[2023-04-08] MEDS ORDERED: Ondansetron PF 4 MG/2 ML Vial IVP PRN (17:20)
[2023-04-08] MEDS ORDERED: Acetaminophen 650 MG Suppository PR PRN (17:20)
[2023-04-08] MEDS ORDERED: Ondansetron ODT 4 MG TAB PO PRN (17:20)
[2023-04-08] MEDS ORDERED: FLU VACC QS2023(65UP)/MF59C/PF 60 MCG/0.5 ML SYRINGE IM ONE (17:30)
[2023-04-08 18:25] LABS: #Eosinphils 0.1 10x3/uL (0.0-0.5); #Monocytes 0.5 10x3/uL (0.0-1.1); #Neutrophils 8.4 10x3/uL (1.5-8.4); %Basophils 0.2 % (0.0-2.0); %Eosinophils 1.1 % (0.0-6.0); %Lymphocytes 11.9 % (18.0-47.0); %Monocytes 5.1 % (0.0-10.0); Hematocrit 35.4 % (34.9-44.5); Hemoglobin 10.7 g/dL (12.0-15.5); Mean Corpuscular HGB CONC 30.2 g/dL (32.0-36.0); Mean Corpuscular Hemoglobin 29.6 pg (27.0-33.0); Mean Corpuscular Volume 97.8 fl (81.6-98.3); Mean Platelet Volume 9.4 fl (7.4-10.4); Platelet Count 241 10x3/uL (150-450); RBC Distribution Width 15.3 % (11.5-14.5); Red Blood Cell (RBC) Count 3.62 10x6/uL (3.90-5.03); White Blood Cell (WBC) Count 10.4 10x3/uL (3.5-10.5)
[2023-04-08 18:28] LABS: ALT (SGPT) 9 U/L (8-55); AST (SGOT) 15 U/L (5-34); Alkaline Phosphatase 120 U/L (40-110); Anion Gap 9 mmol/L (10-20); BUN (Urea Nitrogen) 24 mg/dL (9.8-20.1); Bilirubin, Total 0.4 mg/dL (0.2-1.2); Calc. Creatinine Clearance 32 mL/min (70-130); Calcium 12.1 mg/dL (7.8-10.44); Carbon Dioxide 27 mmol/L (23-31); Chloride 119 mmol/L (98-107); Estimated GFR 59; Globulin 2.3 g/dL (2.4-3.5); Glucose 105 mg/dL (83-110); Magnesium 1.7 mg/dL (1.6-2.6); Protein, Total 5.3 g/dL (5.8-8.1)
[2023-04-08 18:34] LABS: Sodium 152 mmol/L (136-145)
[2023-04-08] MEDS: Dextrose 5% w/ 20 mEq KCl 1,000 ML IV SCH (18:57)
[2023-04-08] MEDS: LevoFLOXacin 750 mg/D5W 750 MG in Premix 1 BAG IVPB SCH (18:58)
[2023-04-09 04:56] LABS: #Eosinphils 0.1 10x3/uL (0.0-0.5); #Monocytes 0.4 10x3/uL (0.0-1.1); #Neutrophils 6.4 10x3/uL (1.5-8.4); %Basophils 0.5 % (0.0-2.0); %Eosinophils 1.5 % (0.0-6.0); %Lymphocytes 12.8 % (18.0-47.0); %Monocytes 4.6 % (0.0-10.0); %Neutrophils 79.6 % (40.0-75.0); Hematocrit 31.8 % (34.9-44.5); Hemoglobin 9.8 g/dL (12.0-15.5); Mean Corpuscular HGB CONC 30.8 g/dL (32.0-36.0); Mean Corpuscular Hemoglobin 29.3 pg (27.0-33.0); Mean Corpuscular Volume 94.9 fl (81.6-98.3); Mean Platelet Volume 9.7 fl (7.4-10.4); Platelet Count 242 10x3/uL (150-450); RBC Distribution Width 15.4 % (11.5-14.5); Red Blood Cell (RBC) Count 3.35 10x6/uL (3.90-5.03)
[2023-04-09 05:00] LABS: ALT (SGPT) 8 U/L (8-55); AST (SGOT) 16 U/L (5-34); Albumin 2.8 g/dL (3.4-4.8); Alkaline Phosphatase 115 U/L (40-110); Anion Gap 9 mmol/L (10-20); BUN (Urea Nitrogen) 21 mg/dL (9.8-20.1); Bilirubin, Total 0.3 mg/dL (0.2-1.2); Calc. Creatinine Clearance 34 mL/min (70-130); Carbon Dioxide 25 mmol/L (23-31); Chloride 117 mmol/L (98-107); Estimated GFR 65; Globulin 2.1 g/dL (2.4-3.5); Glucose 111 mg/dL (83-110); Magnesium 1.5 mg/dL (1.6-2.6); Phosphorus 1.9 mg/dL (2.3-4.7); Potassium 3.1 mmol/L (3.5-5.1); Protein, Total 4.9 g/dL (5.8-8.1); Sodium 148 mmol/L (136-145)
[2023-04-09] MEDS: Magnesium 2 GM/50 ML(in water) 2 GM in Premix 1 BAG IVPB SCH (08:45)
[2023-04-09] MEDS: Potassium Chloride 40 MEQ, Admixture Fee 1 EACH in Dextrose 5% in Water 1,000 ML IV SCH (08:46)
[2023-04-09 10:17] VITALS: BMI 14.1
[2023-04-09] MEDS: Cinacalcet HCl 30 MG TAB PO SCH (14:21)
[2023-04-09] MEDS: Aspirin 81 mg Enteric Coated Tablet PO SCH (14:21)
[2023-04-09 16:21] LABS: Anion Gap 8 mmol/L (10-20); BUN (Urea Nitrogen) 18 mg/dL (9.8-20.1); Calc. Creatinine Clearance 23 mL/min (70-130); Calcium 12.2 mg/dL (7.8-10.44); Carbon Dioxide 25 mmol/L (23-31); Chloride 114 mmol/L (98-107); Estimated GFR 65; Glucose 112 mg/dL (83-110); Magnesium 2.2 mg/dL (1.6-2.6); Phosphorus 1.8 mg/dL (2.3-4.7); Potassium 3.4 mmol/L (3.5-5.1); Sodium 144 mmol/L (136-145)
[2023-04-09 17:31] LABS: Bilirubin Neg (Negative); Blood, Urine Negative (Negative); Clarity Clear (Clear); Glucose, Urine (Dipstick) Normal (Negative); Ketone, Urine Negative (Negative); Leukocyte 100 (Negative); Nitrite Negative (Negative); Protein, Urine (Dipstick) 15 mg/dl (Neg-Trace); Urobilinogen Normal mg/dL (Less than 2)
[2023-04-09 17:40] LABS: CAUTI Indications for Culture Alt mental st,lethar; RBC/HPF 0-3 HPF (0-3); Squamous Epithelial 0-3 HPF (0-3)
[2023-04-09 17:41] LABS: Bacteria/HPF Rare-Few HPF (None Seen); Transitional Epithelial 0-3 HPF (None Seen)
[2023-04-09 17:42] LABS: Urine Culture Reflex No No
[2023-04-09] MEDS: Furosemide 20 MG (2 mL) VIAL SLOW IVP SCH (17:46)
[2023-04-09] MEDS: Metoprolol Tartrate 25 MG TAB PO SCH (21:10)
[2023-04-10 05:36] LABS: Anion Gap 12 mmol/L (10-20); BUN (Urea Nitrogen) 16 mg/dL (9.8-20.1); Calc. Creatinine Clearance 22 mL/min (70-130); Calcium 11.7 mg/dL (7.8-10.44); Carbon Dioxide 24 mmol/L (23-31); Chloride 112 mmol/L (98-107); Estimated GFR 63; Glucose 99 mg/dL (83-110); Magnesium 1.9 mg/dL (1.6-2.6); Phosphorus 2.1 mg/dL (2.3-4.7); Potassium 3.7 mmol/L (3.5-5.1); Sodium 144 mmol/L (136-145)
[2023-04-10 05:40] LABS: #Eosinphils 0.1 10x3/uL (0.0-0.5); #Monocytes 0.4 10x3/uL (0.0-1.1); #Neutrophils 7.5 10x3/uL (1.5-8.4); %Basophils 0.2 % (0.0-2.0); %Eosinophils 0.9 % (0.0-6.0); %Monocytes 4.6 % (0.0-10.0); Hematocrit 32.6 % (34.9-44.5); Hemoglobin 10.5 g/dL (12.0-15.5); Mean Corpuscular HGB CONC 32.2 g/dL (32.0-36.0); Mean Corpuscular Hemoglobin 30.1 pg (27.0-33.0); Mean Corpuscular Volume 93.4 fl (81.6-98.3); Mean Platelet Volume 9.9 fl (7.4-10.4); Platelet Count 186 10x3/uL (150-450); RBC Distribution Width 15.2 % (11.5-14.5); Red Blood Cell (RBC) Count 3.49 10x6/uL (3.90-5.03); White Blood Cell (WBC) Count 8.9 10x3/uL (3.5-10.5)
[2023-04-10] MEDS: Potassium Phosphate 9 MMOL in Sodium Chloride 0.9% 100 ML IVPB SCH (08:33)
[2023-04-10] MEDS: Multivitamin W/ Minerals 1 TAB PO SCH (08:34)
[2023-04-10] MEDS: Gabapentin 100 MG CAP PO SCH (08:34)
[2023-04-10] MEDS: Memantine 5 MG TAB PO SCH (08:34)
[2023-04-10] MEDS ORDERED: Dextrose 5%-Lactated Ringers 1,000 ML IV SCH (09:59)
[2023-04-10] MEDS ORDERED: Lactated Ringer's 500 ML IV SCH (10:45)
[2023-04-10 12:55] VITALS: BP 139/80; TEMP 96.9
[2023-04-10] MEDS ORDERED: LevoFLOXacin 750 mg/D5W 750 MG in Premix 1 BAG IVPB SCH (18:00)
[2023-04-11] MEDS ORDERED: Sertraline 100 MG TAB PO SCH (09:00)
[2023-04-11] MEDS ORDERED: Ezetimibe 10 MG TAB PO SCH (09:00)
[2023-04-11] MEDS ORDERED: Amlodipine 5 MG TAB PO SCH (09:00)
== END 2023-04-10 14:02 | disposition hospice, inpatient (51) ==
LOC: INTOOBSV 14:07 → CSHTELE 14:07
PROVIDERS: ADMIT Nurse Practitioner Family; ATTEND Internal Medicine
DX: R41.82 Altered mental status, unspecified (principal); I11.0 Hypertensive heart disease with heart failure; I50.32 Chronic diastolic (congestive) heart failure; E05.00 Thyrotoxicosis with diffuse goiter without thyrotoxic crisis or storm; F03.90 Unspecified dementia, unspecified severity, without behavioral disturbance, psychotic disturbance, mood disturbance, and anxiety; E78.5 Hyperlipidemia, unspecified; M19.90 Unspecified osteoarthritis, unspecified site; M81.0 Age-related osteoporosis without current pathological fracture; N32.81 Overactive bladder; G93.41 Metabolic encephalopathy; R79.89 Other specified abnormal findings of blood chemistry; E83.52 Hypercalcemia; E87.1 Hypo-osmolality and hyponatremia; E87.6 Hypokalemia; Z96.611 Presence of right artificial shoulder joint; Z79.899 Other long term (current) drug therapy; Z79.82 Long term (current) use of aspirin
CPT/HCPCS: 36415; 80048; 80053; 81001; 82310; 83735; 84100; 85025; 87040; 94760; 96374; 96375; 97139; G0378; J1940; J1956; J3475; J3480; J3490; J7070